=== PATIENT | male | born 1980 | race Caucasian/White ===

== ENCOUNTER 2022-05-20 17:48 | Outpatient (CLI) | payer BC, SELFPAY ==
[2022-05-20 18:06] LABS: Basophils Absolute Auto 0.06 K/uL (0.00-0.30); Basophils Percent Auto 0.9 % (0.0-3.0); Eosinophils Absolute Auto 0.21 K/uL (0.00-0.50); Eosinophils Percent Auto 3.3 % (0.0-7.0); Hematocrit 44.4 % (37.0-53.0); Lymphocytes Absolute Auto 1.84 K/uL (0.90-2.90); Lymphocytes Percent Auto 29.1 % (20-44); Mean Corpuscular HGB Conc 34 gm/dL (32-36); Mean Corpuscular Hemoglobin 31 pg (26-34); Mean Corpuscular Volume 92 fL (80-100); Monocytes Percent Auto 9.5 % (0.0-11.0); Neutrophils Absolute Auto 3.61 K/uL (1.7-7.0); Neutrophils Percent Auto 57.2 % (42.0-72.0); Platelet Count* 298 K/uL (140-440); Red Blood Count 4.85 m/uL (4.30-5.90); White Blood Count* 6.32 K/uL (4.50-11.00)
[2022-05-20 18:09] LABS: Slide Review Reflex No
[2022-05-20 18:16] LABS: Sodium Point of Care* 141 mmol/L (138-146)
[2022-05-20 18:17] LABS: Blood Urea Nitrogen POC* 14 mg/dl (8-26); Carbon Dioxide Point of Care* 26 mmol/L (20-32); Chloride Point of Care* 102 mmol/L (98-109); Creatinine Point of Care* 1.1 mg/dl (0.6-1.3); Glucose IStat Point of Care 89 mg/dl (60-115)
[2022-05-20 21:39] LABS: Alanine Aminotransferase* 18 U/L (4-50); Alkaline Phosphatase* 107 U/L (40-150); Aspartate Amino Transferase* 29 U/L (12-35); Bilirubin Direct* 0.3 mg/dL (0.0-0.5); Bilirubin Total* 0.5 mg/dL (0.1-1.5); Cholesterol* 260 mg/dL (90-199); HDL Cholesterol* 49 mg/dL (>=40); LDL Cholesterol Calculated 152 mg/dL (<100); Total Protein* 7.8 g/dL (6.0-8.3); Triglycerides* 295 mg/dL (40-149)
== END 2022-05-20 17:49 | disposition home or self-care (01) ==
PROVIDERS: PCP Family Medicine; Visit Provider Family Medicine
DX: E78.00 Pure hypercholesterolemia, unspecified (principal); I10 Essential (primary) hypertension; R79.89 Other specified abnormal findings of blood chemistry
CPT/HCPCS: 80061; 80076; 85025

== ENCOUNTER 2023-07-18 11:04 | Outpatient (CLI) | payer BC, SELFPAY | END 2023-07-18 11:05 | disposition home or self-care (01) | PROVIDERS: PCP Family Medicine; Visit Provider Family Medicine | DX: I10 Essential (primary) hypertension (principal); E78.00 Pure hypercholesterolemia, unspecified; L65.9 Nonscarring hair loss, unspecified; M10.9 Gout, unspecified | CPT/HCPCS: 80053; 80061 ==

== ENCOUNTER 2024-08-24 09:36 | Outpatient (CLI) | payer BC, SELFPAY ==
[2024-08-24 10:03] LABS: Basophils Absolute Auto 0.02 K/uL (0.00-0.30); Basophils Percent Auto 0.3 % (0.0-3.0); Eosinophils Absolute Auto 0.14 K/uL (0.00-0.50); Eosinophils Percent Auto 2.4 % (0.0-7.0); Hematocrit 47.4 % (37.0-53.0); Hemoglobin* 16.2 gm/dL (13.5-17.5); Immature Granulocytes Abs Auto 0.01 K/uL (0.00-0.30); Immature Granulocytes Pct Auto 0.2 %; Lymphocytes Absolute Auto 1.79 K/uL (0.90-2.90); Lymphocytes Percent Auto 31.3 % (20-44); Mean Corpuscular HGB Conc 34 gm/dL (32-36); Mean Corpuscular Hemoglobin 32 pg (26-34); Mean Corpuscular Volume 94 fL (80-100); Monocytes Absolute Auto 0.51 K/UL (0.00-0.90); Monocytes Percent Auto 8.9 % (0.0-11.0); Neutrophils Absolute Auto 3.25 K/uL (1.7-7.0); Neutrophils Percent Auto 56.9 % (42.0-72.0); Platelet Count* 276 K/uL (140-440); RDW Coefficient of Variation % 12.6 % (11.5-15.5); Red Blood Count 5.07 m/uL (4.30-5.90); White Blood Count* 5.72 K/uL (4.50-11.00)
[2024-08-24 10:06] LABS: Hemoglobin A1C* 5.2 % (0-5.6)
[2024-08-24 10:17] LABS: Slide Review Reflex No
[2024-08-24 13:41] LABS: Chloride* 99 mmol/L (96-114)
[2024-08-24 13:42] LABS: Potassium* 4.3 mmol/L (3.6-5.1); Sodium* 134 mmol/L (135-149)
[2024-08-24 13:44] LABS: Anion Gap 12 mEq/L (7-15); Bilirubin Total* 0.9 mg/dL (0.1-1.5); Blood Urea Nitrogen* 13 mg/dL (5-24); Carbon Dioxide* 23 mmol/L (20-32); Cholesterol* 297 mg/dL (90-199); Creatinine* 0.9 mg/dL (0.5-1.5); Estimated Glomerular Filt Rate 109 ml/min; Total Protein* 8.3 g/dL (6.0-8.3)
[2024-08-24 13:45] LABS: Alanine Aminotransferase* 68 U/L (4-50); Alkaline Phosphatase* 90 U/L (40-150); Aspartate Amino Transferase* 58 U/L (12-35); Calcium* 9.7 mg/dL (8.4-10.6); Glucose* 92 mg/dL (60-115); HDL Cholesterol* 56 mg/dL (>=40); LDL Cholesterol Calculated 195 mg/dL (<100); Triglycerides* 231 mg/dL (40-149); Uric Acid* 9.2 mg/dL (2.2-8.4)
[2024-08-24 14:16] LABS: PSA Screen* 0.32 ng/mL (0.10-4.00)
== END 2024-08-24 09:37 | disposition home or self-care (01) ==
PROVIDERS: PCP Family Medicine; Visit Provider Family Medicine
DX: E78.00 Pure hypercholesterolemia, unspecified (principal); R79.89 Other specified abnormal findings of blood chemistry; M10.9 Gout, unspecified; I10 Essential (primary) hypertension; Z12.5 Encounter for screening for malignant neoplasm of prostate
CPT/HCPCS: 80053; 80061; 83036; 84550; 85025; G0103